=== PATIENT | female | born 1970 | race Caucasian/White ===

== ENCOUNTER 2017-03-28 17:43 | Emergency (ER) | payer OTHER | END 2017-03-28 18:37 | disposition home or self-care (01) | LOC: ER1 17:43 | DX: G89.29 Other chronic pain (principal); M19.90 Unspecified osteoarthritis, unspecified site; F17.210 Nicotine dependence, cigarettes, uncomplicated; Z88.5 Allergy status to narcotic agent; Z79.899 Other long term (current) drug therapy | CPT/HCPCS: 96372; 99281; J1100 ==

== ENCOUNTER 2017-03-29 10:49 | Emergency (ER) | payer OTHER | END 2017-03-29 12:30 | disposition home or self-care (01) | LOC: ER1 10:49 | DX: G89.29 Other chronic pain (principal); J44.9 Chronic obstructive pulmonary disease, unspecified; J45.909 Unspecified asthma, uncomplicated; M10.9 Gout, unspecified; F17.200 Nicotine dependence, unspecified, uncomplicated; Z88.5 Allergy status to narcotic agent; Z79.899 Other long term (current) drug therapy | CPT/HCPCS: 96372; 99283; J1885 ==